=== PATIENT | female | born 1965 | race Caucasian/White ===

== ENCOUNTER 2017-08-16 22:23 | Emergency (ER) | payer BC, OTHER ==
[~2017-08-16] VITALS: Ht 167.6 cm; Wt 74.3 kg
[~2017-08-16 22:23] MED LIST: ALBUAER2 INH
[2017-08-16 22:26] VITALS: TEMP 36.7; Ht 167.6 cm; Wt 74.3 kg
[2017-08-16] MEDS ORDERED: DiphenhydrAMINE HCL 50 MG/ML VIAL IV STA (22:35)
[2017-08-16] MEDS ORDERED: METOCLOPRAMIDE HCL INJ 5 MG/ML 2 ML VIAL IV STA (22:35)
[2017-08-16] MEDS ORDERED: SODIUM CHLORIDE 0.9% 1000ML 1,000 ML IV STA (22:35)
[2017-08-16 23:10] LABS: BASO % 0.2 %; BASO ABS # 0.02 K/uL (0-0.2); HEMATOCRIT 40.7 % (37-47); HEMOGLOBIN 13.9 g/dL (12.0-16.0); IG# 0.02 K/uL (0.00-0.02); LYMPH % 3.7 %; LYMPH ABS # 0.35 K/uL (1.2-3.4); MEAN CELL VOLUME 85.9 fL (80-100); MEAN CORPUSCULAR HEMOGLOBIN 29.3 pg (25-34); MEAN CORPUSCULAR HGB CONC 34.2 g/dl (32-36); MEAN PLATELET VOLUME 10.8 fL (7.4-10.4); MONO % 2.7 %; MONO ABS # 0.26 K/uL (0.11-0.59); NEUT % 93.2 %; NEUT ABS # 8.93 K/uL (1.4-6.5); PLATELET COUNT 188 K/uL (130-400); RED CELL DISTRIBUTION WIDTH CV 14.8 % (11.5-14.5); RED CELL DISTRIBUTION WIDTH SD 46.7 fL (36.4-46.3); WHITE BLOOD COUNT 9.58 K/uL (4.8-10.8)
[2017-08-16 23:22] VITALS: O2SAT 96
[2017-08-16 23:30] LABS: ALBUMIN 4.4 gm/dl (3.4-5.0); CALCIUM 9.5 mg/dl (8.5-10.1); CREATININE 1.02 mg/dl (0.60-1.20); POTASSIUM 3.9 mmol/L (3.5-5.1)
[2017-08-16 23:32] LABS: TOTAL PROTEIN 7.8 gm/dl (6.4-8.2)
--- NOTE | 2017-08-17 01:11 | EMERGENCY ROOM VISIT NOTE ---
History First contact with patient: 22:29 Chief Complaint: VOMITING Stated Complaint: VOMITING Nursing Triage Summary: Patient woke this morning hungover, states that she has been vomiting all day and "once I get started vomiting, I can't stop" Patient reports that this has happened to her before. History of Present Illness The patient is a 51 year old female who presents to the Emergency Room with complaints of nausea and vomiting for the past few hours after drinking alcohol. Patient states this happens to her and she normally comes here and gets nausea medication and hydration. Patient states she had some alcoholic beverages and then later on got sick. Patient was a several episodes of vomiting without diarrhea or hematemesis or obvious blood in the emesis. Patient states her got her some red medicine to drink to help out with nausea and vomiting and believes that emesis is from this. This was sent to the lab for analysis for Gastroccult testing. Patient denies chest pain, dyspnea, fever, chills, abdominal pain, diarrhea, or any other medical complaints. Patient states she does not want any advanced test done. Review of Systems An 10 system review of systems was completed with positives and pertinent negatives listed in the HPI. Past Medical/Surgical History Asthma, hypothyroidism Social History Smoking Status: Never Smoker Smokeless Tobacco Use: No Alcohol Use: occasionally Drug Use: none Marital Status: single Housing Status: lives with family Occupation Status: employed Current/Historical Medications Scheduled Levothyroxine Sodium (Levothyroxine Sodium), 50 MCG PO DAILY Scheduled PRN Albuterol Hfa (Ventolin Hfa), 2 PUFFS INH DIRECTED PRN for PRIOR TO EXERCISE Physical Exam Vital Signs Date Time Temp Pulse Resp B/P (MAP) Pulse Ox O2 Delivery O2 Flow Rate FiO2 08/16/17 23:22 96 Room Air 08/16/17 22:26 36.7 58 19 141/72 97 Room Air Physical Exam VITALS: Vitals are noted on the nurse's note and reviewed by myself. Vital signs stable. GENERAL: White female vomiting, in no acute distress, nondiaphoretic, well- developed well-nourished. SKIN: The skin was without rashes, erythema, edema, or bruising. There is no tenting of the skin. Capillary reflex less than 2 seconds. HEAD: Normocephalic atraumatic. EARS: External auditory canals clear, tympanic membranes pearly villasenor without erythema or effusion bilaterally. EYES: Pupils equal round and reactive to light and accommodation. Conjunctivae without injection, sclerae without icterus. Extraocular movements intact. NOSE: Patent, turbinates without inflammation or discharge. MOUTH: Mucous membranes moist. Pharynx without erythema or exudate. Uvula midline. Airway patent. Tongue does not deviate. NECK: Supple without nuchal rigidity. No lymphadenopathy. No thyromegaly. Cervical spine is nontender. No JVD. HEART: Regular rate and rhythm without murmurs gallops or rubs. LUNGS: Clear to auscultation bilaterally without wheezes, rales or rhonchi. No retractions or accessory muscle use. ABDOMEN: Positive bowel sounds x 4. Normal tympanic percussion. Soft, nontender, without masses or organomegaly. Jolley sign negative. No guarding or rebound tenderness. No CVA tenderness MUSCULOSKELETAL: No muscle atrophy, erythema, or edema noted. NEURO: Patient was alert and oriented to person place and time. Normal sensation to light and sharp touch. No focal neurological deficits. Medical Decision & Procedures Laboratory Results 08/16/17 22:55 Red Blood Count 4.74, Mean Corpuscular Volume 85.9, Mean Corpuscular Hemoglobin 29.3, Mean Corpuscular Hemoglobin Concent 34.2, Mean Platelet Volume 10.8, Neutrophils (%) (Auto) 93.2, Lymphocytes (%) (Auto) 3.7, Monocytes (%) (Auto) 2.7, Eosinophils (%) (Auto) 0.0, Basophils (%) (Auto) 0.2, Neutrophils # (Auto) 8.93, Lymphocytes # (Auto) 0.35, Monocytes # (Auto) 0.26, Eosinophils # (Auto) 0.00, Basophils # (Auto) 0.02 08/16/17 22:55 Test 08/16/17 22:55 08/16/17 23:49 White Blood Count 9.58 K/uL (4.8-10.8) Red Blood Count 4.74 M/uL (4.2-5.4) Hemoglobin 13.9 g/dL (12.0-16.0) Hematocrit 40.7 % (37-47) Mean Corpuscular Volume 85.9 fL (80-100) Mean Corpuscular Hemoglobin 29.3 pg (25-34) Mean Corpuscular Hemoglobin Concent 34.2 g/dl (32-36) Platelet Count 188 K/uL (130-400) Mean Platelet Volume 10.8 fL (7.4-10.4) Neutrophils (%) (Auto) 93.2 % Lymphocytes (%) (Auto) 3.7 % Monocytes (%) (Auto) 2.7 % Eosinophils (%) (Auto) 0.0 % Basophils (%) (Auto) 0.2 % Neutrophils # (Auto) 8.93 K/uL (1.4-6.5) Lymphocytes # (Auto) 0.35 K/uL (1.2-3.4) Monocytes # (Auto) 0.26 K/uL (0.11-0.59) Eosinophils # (Auto) 0.00 K/uL (0-0.5) Basophils # (Auto) 0.02 K/uL (0-0.2) RDW Standard Deviation 46.7 fL (36.4-46.3) RDW Coefficient of Variation 14.8 % (11.5-14.5) Immature Granulocyte % (Auto) 0.2 % Immature Granulocyte # (Auto) 0.02 K/uL (0.00-0.02) Anion Gap 8.0 mmol/L (3-11) Est Creatinine Clear Calc Drug Dose 68.0 ml/min Estimated GFR () 74.3 Estimated GFR (Non- 64.1 BUN/Creatinine Ratio 17.3 (10-20) Calcium Level 9.5 mg/dl (8.5-10.1) Total Bilirubin 0.9 mg/dl (0.2-1) Direct Bilirubin 0.2 mg/dl (0-0.2) Aspartate Amino Transf (AST/SGOT) 30 U/L (15-37) Alanine Aminotransferase (ALT/SGPT) 26 U/L (12-78) Alkaline Phosphatase 62 U/L (45-117) Total Protein 7.8 gm/dl (6.4-8.2) Albumin 4.4 gm/dl (3.4-5.0) Lipase 147 U/L (73-393) Gastric Fluid pH 3 Gastric Fluid Occult Blood NEG (NEG) Medications Administered Medications (Trade) Dose Ordered Sig/Oscar Route Start Time Stop Time Status Last Admin Dose Admin Metoclopramide HCl (Reglan Inj) 10 mg NOW STAT IV 08/16/17 22:35 08/16/17 22:36 DC 08/16/17 23:16 10 MG Diphenhydramine HCl (Benadryl Inj) 12.5 mg NOW STAT IV 08/16/17 22:35 08/16/17 22:37 DC 08/16/17 23:16 12.5 MG Sodium Chloride 1,000 ml @ 999 mls/hr Q1H1M STAT IV 08/16/17 22:35 08/16/17 23:35 DC 08/16/17 23:16 999 MLS/HR ED Course Prior records/ancillary studies reviewed. Triage Nursing notes reviewed. Additional history obtained from the family. The patient's history was concerning for nausea, vomiting, after drinking alcohol. Differential diagnosis: Etiologies such as alcoholic gastritis, pancreatitis, food borne illness, infections, appendicitis, diverticulitis, inflammatory bowel disease, obstruction, GI bleed, biliary pathology, as well as others were entertained. Physical examination findings: As above. Abdominal examination revealed no tenderness. Vital signs reviewed and revealed stable. ER treatment provided: IV hydration 1 L NSS. Reglan, Benadryl On reassessment the patient felt better. Patient was tolerating p.o. intake. Diagnostics interpretation by me: The labs revealed no worrisome leukocytosis or electrolyte abnormality This appears to be consistent with nausea vomiting most likely from excessive alcohol use. Patient did not have acute abdomen on exam. She is well- appearing. Gastroccult was negative. Patient was advised to rest, do clear liquid diet today and progress as tolerated to bland diet tomorrow. She is advised to avoid excessive alcohol in the future. She is advised follow-up family care in a few days here in the ER sooner for abdominal pain, fevers, vomiting, worsening signs or symptoms or as needed. By the evaluation outlined above emergent etiologies such as appendicitis, diverticulitis, obstruction, cardiac sources, mesenteric ischemia, aortic pathology, inflammatory bowel disease, renal colic, PUD, biliary pathology, UTI, as well as others were deemed relatively unlikely. The pt informed about the findings as listed above. All questions were answered and pleased with the treatment. Return instructions were outlined and the patient was discharged in stable condition. Outpatient prescription management: [facility] Referral: The patient was referred to their primary care physician for follow-up in 2 to 3 days for a recheck of the current condition. The chart was completed utilizing [place] Speech voice recognition software. Grammatical errors, random word insertions, pronoun errors, and incomplete sentences are an occassional consequence of this system due to software limitations, ambient noise, and hardware issues. Any formal questions or concerns about the content, text, or information contained within the body of this dictation should be directly addressed to the physician respiratory care assistant for clarification. Medical Decision As above Medication Reconcilliation Current Medication List: was personally reviewed by me Blood Pressure Screening Patient's blood pressure: Normal blood pressure Impression Primary Impression: Vomiting Departure Information Dispostion Home / Self-Care Condition GOOD Referrals Abdirashid Go M.D. (PCP) Forms HOME CARE DOCUMENTATION FORM, IMPORTANT VISIT INFORMATION Patient Instructions Vomiting - [facility] Additional Instructions DO NOT drive, drink alcohol, operate machinery, or perform dangerous activities today. You were given medications in the ER that can affect your ability to safely function or operate a vehicle. Recommend avoiding alcohol as this seems to trigger your vomiting. Zofran(odansetron) tablets 4mg: Take one and allow it to dissolve in your mouth every four to six hours as needed for nausea or vomiting. Rest and drink plenty of fluids as tolerated. Slow sips of water or sports drinks are recommended instead of large amounts all at once. Continue current medications. Once your stomach is settled start with a clear liquid diet (jello, soup broth, etc.) and then advance as tolerated. You should avoid full, heavy meals for about 24 hrs from the time your symptoms resolved. Return to the ER for persistent vomiting, fevers, abdominal pain, chest pains, difficulty breathing, black or bloody stools, worsening of your condition, or as needed. Follow up with your primary physician in 2-3 days for a recheck of your current condition. Problem Qualifiers Primary Impression: Vomiting Vomiting type: unspecified Vomiting Intractability: non-intractable Nausea presence: with nausea Qualified Codes: R11.2 - Nausea with vomiting, unspecified
[2017-08-17] MEDS ORDERED: ONDANSETRON HOME PACK 4MG OD TAB PO ONE (01:15)
[2017-08-17 01:25] VITALS: BP 110/70; PULSE 72; O2SAT 96
[2017-08-17] MEDS ORDERED: LEVO50TA6 PO (15:16)
[2017-08-17] MEDS ORDERED: PROM1SUP19 PR (17:45)
[2017-08-17] MEDS ORDERED: VNTHFA/IN INH (22:57)
== END 2017-08-17 01:26 | disposition home or self-care (01) ==
LOC: C.EDB 22:23
DX: R11.2 Nausea with vomiting, unspecified (principal); E03.9 Hypothyroidism, unspecified; Z79.899 Other long term (current) drug therapy

== ENCOUNTER 2017-08-17 13:21 | Emergency (ER) | payer OTHER ==
[~2017-08-17] VITALS: Ht 167.6 cm; Wt 75.6 kg
[2017-08-17 13:33] VITALS: TEMP 36.8; Ht 167.6 cm; Wt 75.6 kg
[2017-08-17] MEDS ORDERED: SODIUM CHLORIDE 0.9% 1000ML 1,000 ML IV STA (14:11)
[2017-08-17] MEDS ORDERED: ONDANSETRON INJ 2 MG/ML 2 ML VIAL IV STA (14:11)
[2017-08-17 14:23] LABS: BASO % 0.3 %; BASO ABS # 0.03 K/uL (0-0.2); EOS % 0.1 %; EOS ABS # 0.01 K/uL (0-0.5); HEMATOCRIT 40.1 % (37-47); IG# 0.03 K/uL (0.00-0.02); LYMPH % 8.6 %; LYMPH ABS # 1.01 K/uL (1.2-3.4); MEAN CELL VOLUME 86.6 fL (80-100); MEAN CORPUSCULAR HEMOGLOBIN 30.2 pg (25-34); MEAN CORPUSCULAR HGB CONC 34.9 g/dl (32-36); MEAN PLATELET VOLUME 10.9 fL (7.4-10.4); MONO % 6.8 %; NEUT % 83.9 %; PLATELET COUNT 221 K/uL (130-400); RED CELL DISTRIBUTION WIDTH CV 15.1 % (11.5-14.5); RED CELL DISTRIBUTION WIDTH SD 47.9 fL (36.4-46.3); WHITE BLOOD COUNT 11.68 K/uL (4.8-10.8)
--- NOTE | 2017-08-17 14:24 | EMERGENCY ROOM VISIT NOTE ---
ED Visit Note First contact with patient: 14:04 CHIEF COMPLAINT: Vomiting HISTORY OF PRESENTING ILLNESS: This is a 51-year-old female who presents emergency department with complaint of vomiting that started yesterday. Patient states that she had been out drinking, and started vomiting after having beverages. She was seen in the emergency department last night and treated with Zofran and fluids, was feeling much better and went home, however her symptoms came back this morning. She states that they sent her home with Zofran and has been taking this, but it is not helping and she has been vomiting every 15-20 minutes. She states at this point she is just vomiting up bile and everything that she tries to eat or drink. She has associated nausea, but denies any diarrhea, constipation, bloody or black stools, or abdominal pain. She denies any chest pain or shortness of breath, dizziness, syncope, back pain, urinary complaints, or unusual rash. Patient reports a history of cyclic vomiting syndrome in the past, she states this feels the same. She states that in the past she has been given Phenergan suppositories which worked well for her, but she states she does not have any left because her last flareup was about a year ago. REVIEW OF SYSTEMS: A complete 10 point review of systems was reviewed with the patient with pertinent positives and negatives as per history of present illness. All else were negative. PAST MEDICAL HISTORY: No significant past medical or surgical history. SOCIAL HISTORY: Lives at home. Denies tobacco use. Admits to alcohol use, denies recreational drug use. ALLERGIES: No known allergies. PHYSICAL EXAM: CONSTITUTIONAL: Pleasant and cooperative. No acute distress, but appears uncomfortable and is actively vomiting. Moderately dehydrated. HEENT: Normocephalic, atraumatic. Pupils equal, round and reactive to light, EOMI. TMs normal. Pharynx normal. Dry mucous membranes. NECK: Supple, full active range of motion without discomfort. RESPIRATORY: Clear to auscultation bilaterally with no wheezing, crackles, rhonchi or stridor. Equal expansion bilaterally. CARDIOVASCULAR: Regular rate and rhythm with no murmurs, rubs or gallops. Normal peripheral perfusion. No edema. GASTROINTESTINAL: Soft, nontender, nondistended. No palpable masses or HSM. Bowel sounds present in all quadrants. MUSCULOSKELETAL: Full range of motion of all joints without discomfort. INTEGUMENTARY: No rash or other significant dermatologic conditions noted. NEUROLOGIC: Alert and oriented X 4 with normal affect. Normal strength and sensation in all 4 extremities. No focal neurologic deficits noted. Normal speech. Normal gait observed. ED COURSE AND MEDICAL DECISION MAKING: CC: Patient presenting with complaint of nausea and vomiting DIFFERENTIAL DIAGNOSIS: Includes, but not limited to gastroenteritis, food poisoning, cyclic vomiting syndrome, alcohol use, gastritis, peptic ulcer disease, GERD, cholecystitis, pancreatitis, dehydration, electrolyte abnormality , among others. INTERPRETATION OF LABS: Mild leukocytosis, no anemia, no significant electrolyte abnormalities, normal renal function, normal liver enzymes and lipase. Negative serum . UA consistent with dehydration, no evidence of infection. MEDICATION RECONCILIATION: I attest that I have personally reviewed the patient 's current medication list. INITIAL VITAL SIGNS REVIEW: I reviewed the patient's initial vital signs and interpret them as follows: T: Afebrile; BP: Normotensive; HR: Slightly bradycardic; RR: Within normal limits; Pulse Ox: Within normal limits on room air. Blood pressure screening: The patient was found to have normal blood pressure on screening and does not require follow-up for repeat blood pressure check. SUMMARY: Patient was evaluated at bedside, history and physical exam performed. Patient is alert and oriented, in no acute distress but is actively vomiting and appears uncomfortable, resting in the stretcher. Patient denies any pain, abdomen is soft, nontender and nondistended on exam. Patient does appear to be dehydrated on exam. Orders were placed at bedside for labs, UA, , IV fluids for hydration, IV Zofran for nausea. Patient discussed with Dr. Jean, who agrees with my assessment and plan. Labs reviewed as above, I suspect the mild leukocytosis is secondary to excessive vomiting. No acute abnormalities. Patient had transient improvement in nausea with Zofran, but began to have dry heaves again, IV Phenergan was ordered. Patient reassessed multiple times throughout ED stay, she remained stable and well-appearing, her nausea and vomiting resolved after IV Phenergan and she feels much better. Patient was updated on all results and plan for discharge, she was encouraged to follow closely with her primary care provider. Rx for Phenergan suppositories was sent to the patient's pharmacy, as she states these have helped her in the past. Patient was also given strict return precautions should her symptoms worsen, she verbalized understanding. Patient was discharged home in stable condition and ambulatory. Current/Historical Medications Scheduled Levothyroxine Sodium (Levothyroxine Sodium), 50 MCG PO DAILY Scheduled PRN Albuterol Hfa (Ventolin Hfa), 2 PUFFS INH DIRECTED PRN for PRIOR TO EXERCISE Promethazine (Phenergan Suppository), 25 MG WI Q6H PRN for Nausea or Vomiting Allergies Coded Allergies: No Known Allergies (Unverified , 08/16/17) Vital Signs Date Time Temp Pulse Resp B/P (MAP) Pulse Ox O2 Delivery O2 Flow Rate FiO2 08/17/17 17:43 65 18 111/70 99 Room Air 08/17/17 16:24 55 14 111/70 99 Room Air 08/17/17 15:16 59 18 128/67 100 Room Air 08/17/17 14:28 65 08/17/17 13:33 36.8 55 18 132/74 99 Room Air Laboratory Results 08/17/17 14:10 Red Blood Count 4.63, Mean Corpuscular Volume 86.6, Mean Corpuscular Hemoglobin 30.2, Mean Corpuscular Hemoglobin Concent 34.9, Mean Platelet Volume 10.9, Neutrophils (%) (Auto) 83.9, Lymphocytes (%) (Auto) 8.6, Monocytes (%) (Auto) 6.8, Eosinophils (%) (Auto) 0.1, Basophils (%) (Auto) 0.3, Neutrophils # (Auto) 9.80, Lymphocytes # (Auto) 1.01, Monocytes # (Auto) 0.80, Eosinophils # (Auto) 0.01, Basophils # (Auto) 0.03 08/17/17 14:10 Test 08/17/17 14:10 08/17/17 17:16 White Blood Count 11.68 K/uL (4.8-10.8) Red Blood Count 4.63 M/uL (4.2-5.4) Hemoglobin 14.0 g/dL (12.0-16.0) Hematocrit 40.1 % (37-47) Mean Corpuscular Volume 86.6 fL (80-100) Mean Corpuscular Hemoglobin 30.2 pg (25-34) Mean Corpuscular Hemoglobin Concent 34.9 g/dl (32-36) Platelet Count 221 K/uL (130-400) Mean Platelet Volume 10.9 fL (7.4-10.4) Neutrophils (%) (Auto) 83.9 % Lymphocytes (%) (Auto) 8.6 % Monocytes (%) (Auto) 6.8 % Eosinophils (%) (Auto) 0.1 % Basophils (%) (Auto) 0.3 % Neutrophils # (Auto) 9.80 K/uL (1.4-6.5) Lymphocytes # (Auto) 1.01 K/uL (1.2-3.4) Monocytes # (Auto) 0.80 K/uL (0.11-0.59) Eosinophils # (Auto) 0.01 K/uL (0-0.5) Basophils # (Auto) 0.03 K/uL (0-0.2) RDW Standard Deviation 47.9 fL (36.4-46.3) RDW Coefficient of Variation 15.1 % (11.5-14.5) Immature Granulocyte % (Auto) 0.3 % Immature Granulocyte # (Auto) 0.03 K/uL (0.00-0.02) Anion Gap 6.0 mmol/L (3-11) Est Creatinine Clear Calc Drug Dose 61.3 ml/min Estimated GFR () 64.9 Estimated GFR (Non- 56.0 BUN/Creatinine Ratio 12.3 (10-20) Calcium Level 8.9 mg/dl (8.5-10.1) Total Bilirubin 1.0 mg/dl (0.2-1) Direct Bilirubin 0.3 mg/dl (0-0.2) Aspartate Amino Transf (AST/SGOT) 31 U/L (15-37) Alanine Aminotransferase (ALT/SGPT) 28 U/L (12-78) Alkaline Phosphatase 68 U/L (45-117) Total Protein 8.2 gm/dl (6.4-8.2) Albumin 4.4 gm/dl (3.4-5.0) Lipase 180 U/L (73-393) Human Chorionic Gonadotropin, Qual NEG (NEG) Urine Color DK YELLOW Urine Appearance CLEAR (CLEAR) Urine pH 6.5 (4.5-7.5) Urine Specific Rudy 1.032 (1.000-1.030) Urine Protein 1+ (NEG) Urine Glucose (UA) NEG (NEG) Urine Ketones 2+ (NEG) Urine Occult Blood NEG (NEG) Urine Nitrite NEG (NEG) Urine Bilirubin NEG (NEG) Urine Urobilinogen NEG (NEG) Urine Leukocyte Esterase NEG (NEG) Urine WBC (Auto) 1-5 /hpf (0-5) Urine RBC (Auto) 5-10 /hpf (0-4) Urine Hyaline Casts (Auto) 10-30 /lpf (0-5) Urine Epithelial Cells (Auto) >30 /lpf (0-5) Urine Bacteria (Auto) NEG (NEG) Urine Renal Epithelial Cells /lpf (0-5) Medications Administered Medications (Trade) Dose Ordered Sig/Oscar Route Start Time Stop Time Status Last Admin Dose Admin Sodium Chloride 1,000 ml @ 999 mls/hr Q1H1M STAT IV 08/17/17 14:11 08/17/17 15:11 DC 08/17/17 14:25 999 MLS/HR Ondansetron HCl (Zofran Inj) 4 mg NOW STAT IV 08/17/17 14:11 08/17/17 14:13 DC 08/17/17 14:25 4 MG Promethazine HCl 25 mg/Sodium Chloride 51 ml @ 204 mls/hr NOW STAT IV 08/17/17 15:56 08/17/17 16:10 DC 08/17/17 16:25 204 MLS/HR Departure Information Impression Primary Impression: Cyclical vomiting Additional Impression: Dehydration Dispostion Home / Self-Care Condition GOOD Prescriptions Promethazine (Phenergan Suppository) 25 Mg Supp 25 MG WI Q6H Y for Nausea or Vomiting, #10 SUPP Prov: Jeri Bejarano CRNP 08/17/17 Referrals Abdirashid Go M.D. (PCP) Patient Instructions ED Diet [place], ED Nausea Vomiting, Pending Sale To [facility] Additional Instructions You have been treated in the Emergency Department for your vomiting and dehydration. Laboratory results have ruled out any emergent causes for your symptoms which would warrant further workup or admission. You have been prescribed Phenergan suppositories to be used as needed for nausea /vomiting. Take as prescribed. Drink plenty of fluids to stay well hydrated. Stick with a clear liquid diet until your symptoms have improved, then a bland diet, and slowly advance back to a normal diet as tolerated. Avoid excessive alcohol intake, as this may trigger worsening symptoms. Please follow-up with your Primary Care Provider in the next 2-3 days if her symptoms have not fully resolved. Return to the emergency department for severe abdominal or back pain, worsening nausea/vomiting, vomiting blood, blood in your stool or urine, fevers > 101.5, severe dizziness or passing out, or any other concerns. Work Instructions Return To Work: 1 day Problem Qualifiers Primary Impression: Cyclical vomiting Vomiting Intractability: non-intractable Nausea presence: with nausea Qualified Codes: G43.A0 - Cyclical vomiting, not intractable
[2017-08-17 14:40] LABS: ALBUMIN 4.4 gm/dl (3.4-5.0); CALCIUM 8.9 mg/dl (8.5-10.1); CREATININE 1.14 mg/dl (0.60-1.20); POTASSIUM 3.6 mmol/L (3.5-5.1)
[2017-08-17 14:43] LABS: TOTAL PROTEIN 8.2 gm/dl (6.4-8.2)
[2017-08-17] MEDS ORDERED: LEVO50TA6 PO (15:16)
[2017-08-17] MEDS ORDERED: PROMETHAZINE HCL INJ 25 MG in SODIUM CHLORIDE 0.9% 50ML 50 ML IV STA (15:56)
[2017-08-17 17:43] VITALS: BP 111/70; PULSE 65; O2SAT 99
[2017-08-17] MEDS ORDERED: PROM1SUP19 PR (17:45)
[2017-08-17] MEDS ORDERED: VNTHFA/IN INH (22:57)
== END 2017-08-17 18:15 | disposition home or self-care (01) ==
LOC: C.EDB 13:22 → C.EDA 18:15
DX: G43.A0 Cyclical vomiting, in migraine, not intractable (principal); E86.0 Dehydration